=== PATIENT | male | born 1950 | race Caucasian/White ===

== ENCOUNTER → 2016-12-25 | Outpatient (CLI) | payer OTHER ==
--- NOTE | 2016-12-26 07:56 | XCELERA REPORT ---
[address] [address] Transthoracic Echocardiogram Report Name: AGAPITO WILLAMS Age: 66 yrs Gender: Male : 1950 Patient Status: Outpatient Patient Location: RAD Study Date: 12/25/2016 08:24 AM Height: 69 in Weight: 183 lb BSA: 2.0 m2 Reason For Study: PARESTHESIA OF SKIN Ordering Physician: CHARLES NÚÑEZ Performed By: Marlin Mcdonald Interpretation Summary Poor visualisation AV, only 2 sclerotic cusps seen third one (LCC)obscure. NO no AR, Incomplete LV segmental anlaysis, the basal Lateral wall and basal Ant wall not visulaised, other segements normal LVEF visually normal, no LVH, no LV enlagrment, Stage I LV diastolic dysfunction MV normal, no MR, no LA enlargement TV poorly visualised, no TR jet seen unable to derive RVSP to r/o pulm hypertension. MMode/2D Measurements \T\ Calculations RVDd: 3.3 cm LVIDd: 3.8 cm FS: 33.1 % Ao root diam: 3.0 cm IVSd: 1.1 cm LVIDs: 2.6 cm EDV(Teich): 62.6 ml LVPWd: 0.99 cm ESV(Teich): 23.5 ml Ao root area: 7.0 cm2 EF(Teich): 62.5 % LA dimension: 3.2 cm Doppler Measurements \T\ Calculations MV E max yan: MV P1/2t max yan: Ao V2 max: LV V1 max P.2 cm/sec 49.4 cm/sec 114.9 cm/sec 3.0 mmHg MV A max yan: MV P1/2t: 76.5 msec Ao max PG: LV V1 max: 74.8 cm/sec 5.3 mmHg 86.8 cm/sec MV E/A: 0.64 MVA(P1/2t): 2.9 cm2 MV dec slope: 189.0 cm/sec2 MV dec time: 0.26 sec PA V2 max: 81.9 cm/sec PA max P.7 mmHg Left Ventricle There is normal left ventricular wall thickness. The left ventricular ejection fraction is normal. Doppler measurements suggest impaired left ventricular relaxation, which is associated with grade I/IV or mild diastolic dysfunction. Not all wall segments were well visualized. There is no thrombus. Right Ventricle The right ventricle is not well visualized secondary to technical limitations. Atria The right atrium is normal in size. The left atrial size is normal. The interatrial septum is intact with no evidence for an atrial septal defect. Mitral Valve There is mild mitral annular calcification. There is no evidence of mitral valve prolapse. There is no mitral valve stenosis. There is no mitral regurgitation noted. Aortic Valve The aortic valve opens well. The aortic valve is not well visualized secondary to technical limitations. The aortic valve is sclerotic and shows some degree of functional abnormality. Cannot exclude aortic valvular vegetation. There is no aortic valve stenosis. No aortic regurgitation is present. Tricuspid Valve The tricuspid valve is not well visualized secondary to technical limitations. No tricuspid regurgitation. Pulmonic Valve The pulmonic valve is not well visualized. There is no pulmonic valvular regurgitation. Great Vessels The aortic root is normal size. Effusions There is no pericardial effusion. I WMSI = 1.00 % Normal = 100 Segments Size X - Cannot 1 - Normal 2 - 3 - Akinetic4 - 1-2 small Interpret Hypokinetic Dyskinetic 3-5 moderate 5 - 6-14 large Aneurysmal 15-16 diffuse : CHARLES NÚÑEZ > Andrew Paniagua
== END ==
LOC: RAD 07:29
PROVIDERS: ATTEND Physician Assistant
DX: R20.2 Paresthesia of skin (principal); I10 Essential (primary) hypertension
CPT/HCPCS: 70450; 93306; 93880

== ENCOUNTER → 2016-12-31 | Outpatient (CLI) | payer OTHER | LOC: RAD 07:30 | PROVIDERS: ATTEND Physician Assistant | DX: R93.8 Abnormal findings on diagnostic imaging of other specified body structures (principal) | CPT/HCPCS: 70553; A9577 ==